=== PATIENT | female | born 1980 | race Caucasian/White ===

== ENCOUNTER 2020-05-08 20:37 | Emergency (ER) | payer OTHER ==
[~2020-05-08] VITALS: Ht 165.1 cm; Wt 66.7 kg
[2020-05-08 20:43] VITALS: Ht 165.1 cm; Wt 66.7 kg
[2020-05-08 23:24] VITALS: BP 163/89
== END 2020-05-08 23:18 | disposition home or self-care (01) ==
LOC: ED 20:37
DX: T40.2X1A Poisoning by other opioids, accidental (unintentional), initial encounter (principal); I10 Essential (primary) hypertension; Y92.89 Other specified places as the place of occurrence of the external cause